=== PATIENT | female | born 1935 | race Asian ===

== ENCOUNTER 2016-07-18 08:31 | Inpatient (IN) | payer MEDICARE, OTHER ==
[2016-07-18] VITALS (60 sets, daily range): BP systolic 61–116; RESP 12–25; TEMP 99–99.4; Ht 144.8 cm; Wt 69.1 kg
[~2016-07-18] VITALS: Ht 144.8 cm; Wt 69.1 kg
[2016-07-18] MEDS ORDERED: SODIUM CHLORIDE 0.9% 1,000 ML ONE ×2 (08:53→09:16)
[2016-07-18] MEDS ORDERED: ACETAMINOPHEN 325 MG TAB ONE (09:15)
[2016-07-18] MEDS ORDERED: CEFTRIAXONE 1 GM VIAL ONE ×2 (09:16)
[2016-07-18] MEDS ORDERED: SODIUM CHLORIDE 0.9% 250 ML IV ONE (09:16)
[2016-07-18] MEDS ORDERED: SODIUM CHLORIDE 0.9% 50 ML IV ONE (09:17)
[2016-07-18] MEDS ORDERED: ONDANSETRON 4 MG VIAL ONE (09:27)
[2016-07-18] MEDS ORDERED: D5 W/KCL 20MEQ/L 1,000 ML IV SCH (11:00)
[2016-07-18] MEDS ORDERED: SODIUM CHLORIDE 0.9% 500 ML IV ONE ×3 (13:44→19:50)
[2016-07-18] MEDS: POTASSIUM CHLORIDE PREMIX 50 ML IV SCH ×3 (16:38→19:20)
[2016-07-18] MEDS: D5 W/KCL 20MEQ/L 1,000 ML IV SCH ×2 (16:52→23:54)
[2016-07-18] MEDS: ACETAMINOPHEN 325 MG TAB PO PRN ×2 (18:06→18:57)
[2016-07-18] MEDS ORDERED: NOREPINEPHRINE 16 MG in DEXTROSE 5% 234 ML IV SCH (19:50)
[2016-07-18] MEDS ORDERED: VANCOMYCIN 1,500 MG in SODIUM CHLORIDE 0.9% 250 ML IV ONE (19:50)
[2016-07-18] MEDS ORDERED: MISSING DOSE XX ONE (21:45)
[2016-07-19] VITALS (37 sets, daily range): BP systolic 81–130; RESP 13–22; TEMP 97–100.1
[2016-07-19] MEDS ORDERED: MISSING DOSE XX ONE (05:10)
[2016-07-19] MEDS: D5 W/KCL 20MEQ/L 1,000 ML IV SCH (06:42)
[2016-07-19] MEDS ORDERED: IRON SUCROSE COMPLEX 500 MG in SODIUM CHLORIDE 0.9% 250 ML IV ONE (08:15)
[2016-07-19] MEDS: VANCOMYCIN SUSP 250 MG/5 ML UDC PO SCH ×3 (09:00→20:21)
[2016-07-19] MEDS ORDERED: CALCIUM GLUCONATE 2,000 MG in SODIUM CHLORIDE 0.9% 100 ML IV ONE (14:35)
[2016-07-19] MEDS: ONDANSETRON 4 MG VIAL IV PUSH PRN (18:13)
[2016-07-20 00:01] VITALS: BP_SYST 132; RESP 20; TEMP 98.3
[2016-07-20 08:17] VITALS: BP_SYST 120; RESP 20; TEMP 98.8
[2016-07-20] MEDS: VANCOMYCIN SUSP 250 MG/5 ML UDC PO SCH ×3 (09:29→20:42)
[2016-07-20] MEDS: METRONIDAZOLE 250 MG 250 MG in SODIUM CHLORIDE 0.9% 50 ML IV SCH ×3 (09:30→17:09)
[2016-07-20 11:01] VITALS: BP_SYST 98; RESP 20; TEMP 97.3
[2016-07-20 15:27] VITALS: BP_SYST 100; RESP 20; TEMP 96.8
[2016-07-20 19:21] VITALS: BP_SYST 110; RESP 16; TEMP 96.8
[2016-07-20] MEDS: ACETAMINOPHEN 325 MG TAB PO PRN (20:42)
[2016-07-20] MEDS: SACCHA BOULARDII 250MG CAP PO SCH (21:48)
[2016-07-20] MEDS: SODIUM CHLOR 0.9% W/KCL 20MEQ 1,000 ML IV SCH (21:49)
[2016-07-20 23:22] VITALS: BP_SYST 108; RESP 16; TEMP 96.2
[2016-07-21] VITALS (7 sets, daily range): BP systolic 110–132; RESP 14–20; TEMP 96.3–98.9
[2016-07-21] MEDS: METRONIDAZOLE 250 MG 250 MG in SODIUM CHLORIDE 0.9% 50 ML IV SCH ×5 (00:19→23:29)
[2016-07-21] MEDS: VANCOMYCIN SUSP 250 MG/5 ML UDC PO SCH ×5 (00:19→23:28)
[2016-07-21] MEDS: CALCIUM CARB/VIT D3 600 MG TAB PO SCH (09:03)
[2016-07-21] MEDS: SACCHA BOULARDII 250MG CAP PO SCH ×2 (09:03→20:15)
[2016-07-21] MEDS: MULTIVITS/MINERALS (THERAGRAN M) TAB PO SCH (09:04)
[2016-07-21] MEDS: CHOLECALCIFEROL 1,000 UNITS TAB PO SCH (09:04)
[2016-07-21] MEDS: OMEGA 3 FATTY ACIDS 1 GM CAP PO SCH (09:04)
[2016-07-22] VITALS (9 sets, daily range): BP systolic 116–140; RESP 16–18; TEMP 96.9–98.3
[2016-07-22] MEDS: VANCOMYCIN SUSP 250 MG/5 ML UDC PO SCH ×4 (06:32→23:17)
[2016-07-22] MEDS: METRONIDAZOLE 250 MG 250 MG in SODIUM CHLORIDE 0.9% 50 ML IV SCH ×4 (06:32→23:18)
[2016-07-22] MEDS: MULTIVITS/MINERALS (THERAGRAN M) TAB PO SCH (08:52)
[2016-07-22] MEDS: OMEGA 3 FATTY ACIDS 1 GM CAP PO SCH (08:52)
[2016-07-22] MEDS: CALCIUM CARB/VIT D3 600 MG TAB PO SCH (08:52)
[2016-07-22] MEDS: SACCHA BOULARDII 250MG CAP PO SCH ×2 (08:52→21:22)
[2016-07-22] MEDS: CHOLECALCIFEROL 1,000 UNITS TAB PO SCH (08:53)
[2016-07-22] MEDS: SODIUM CHLOR 0.9% W/KCL 20MEQ 1,000 ML IV SCH (23:20)
[2016-07-23 03:36] VITALS: BP_SYST 124; RESP 16; TEMP 96.9
[2016-07-23] MEDS: VANCOMYCIN SUSP 250 MG/5 ML UDC PO SCH ×4 (06:17→23:08)
[2016-07-23] MEDS: METRONIDAZOLE 250 MG 250 MG in SODIUM CHLORIDE 0.9% 50 ML IV SCH ×4 (06:17→23:08)
[2016-07-23 08:05] VITALS: BP_SYST 122; RESP 18; TEMP 96.6
[2016-07-23] MEDS: CHOLECALCIFEROL 1,000 UNITS TAB PO SCH (08:20)
[2016-07-23] MEDS: OMEGA 3 FATTY ACIDS 1 GM CAP PO SCH (08:20)
[2016-07-23] MEDS: CALCIUM CARB/VIT D3 600 MG TAB PO SCH (08:20)
[2016-07-23] MEDS: MULTIVITS/MINERALS (THERAGRAN M) TAB PO SCH (08:20)
[2016-07-23] MEDS: SACCHA BOULARDII 250MG CAP PO SCH ×2 (08:20→20:19)
[2016-07-23 12:14] VITALS: BP_SYST 136; RESP 18; TEMP 97.8
[2016-07-23 15:43] VITALS: BP_SYST 126; RESP 18; TEMP 97.6
[2016-07-23] MEDS ORDERED: MISSING DOSE XX ONE (17:20)
[2016-07-23 20:07] VITALS: BP_SYST 118; RESP 18; TEMP 97.3
[2016-07-24] VITALS (7 sets, daily range): BP systolic 108–136; RESP 16; TEMP 97.5–98.4
[2016-07-24] MEDS: METRONIDAZOLE 250 MG 250 MG in SODIUM CHLORIDE 0.9% 50 ML IV SCH ×3 (05:30→17:17)
[2016-07-24] MEDS: VANCOMYCIN SUSP 250 MG/5 ML UDC PO SCH ×3 (05:32→17:17)
[2016-07-24] MEDS: CHOLECALCIFEROL 1,000 UNITS TAB PO SCH (08:58)
[2016-07-24] MEDS: CALCIUM CARB/VIT D3 600 MG TAB PO SCH (08:58)
[2016-07-24] MEDS: SACCHA BOULARDII 250MG CAP PO SCH ×2 (08:58→21:52)
[2016-07-24] MEDS: OMEGA 3 FATTY ACIDS 1 GM CAP PO SCH (08:59)
[2016-07-24] MEDS: MULTIVITS/MINERALS (THERAGRAN M) TAB PO SCH (08:59)
[2016-07-24] MEDS ORDERED: MISSING DOSE XX ONE (13:15)
[2016-07-24] MEDS: HYDROCORT 2.5% CR 30 GM RECTAL SCH (21:53)
[2016-07-25] MEDS: METRONIDAZOLE 250 MG 250 MG in SODIUM CHLORIDE 0.9% 50 ML IV SCH ×4 (01:05→17:59)
[2016-07-25] MEDS: VANCOMYCIN SUSP 250 MG/5 ML UDC PO SCH ×4 (02:03→17:59)
[2016-07-25] MEDS: SODIUM CHLOR 0.9% W/KCL 20MEQ 1,000 ML IV SCH (02:06)
[2016-07-25 04:01] VITALS: BP_SYST 148; RESP 16; TEMP 96.9
[2016-07-25] MEDS: SACCHA BOULARDII 250MG CAP PO SCH ×2 (08:23→20:07)
[2016-07-25] MEDS: CHOLECALCIFEROL 1,000 UNITS TAB PO SCH (08:23)
[2016-07-25] MEDS: HYDROCORT 2.5% CR 30 GM RECTAL SCH ×2 (08:23→20:07)
[2016-07-25] MEDS: OMEGA 3 FATTY ACIDS 1 GM CAP PO SCH (08:23)
[2016-07-25] MEDS: MULTIVITS/MINERALS (THERAGRAN M) TAB PO SCH (08:23)
[2016-07-25] MEDS: CALCIUM CARB/VIT D3 600 MG TAB PO SCH (08:23)
[2016-07-25 08:29] VITALS: BP_SYST 168; RESP 16; TEMP 98.4
[2016-07-25 11:35] VITALS: BP_SYST 150; RESP 16; TEMP 97.1
[2016-07-25 14:53] VITALS: BP_SYST 148; RESP 16; TEMP 97.2
[2016-07-25 20:02] VITALS: BP_SYST 126; RESP 16; TEMP 97.8
[2016-07-25 23:08] VITALS: BP_SYST 158; RESP 16; TEMP 98.1
[2016-07-26] MEDS: METRONIDAZOLE 250 MG 250 MG in SODIUM CHLORIDE 0.9% 50 ML IV SCH ×3 (00:16→12:21)
[2016-07-26] MEDS: VANCOMYCIN SUSP 250 MG/5 ML UDC PO SCH ×4 (00:16→17:59)
[2016-07-26 03:24] VITALS: BP_SYST 134; RESP 20; TEMP 97.9
[2016-07-26 08:13] VITALS: BP_SYST 166; RESP 20; TEMP 97.3
[2016-07-26] MEDS: MULTIVITS/MINERALS (THERAGRAN M) TAB PO SCH (08:44)
[2016-07-26] MEDS: CHOLECALCIFEROL 1,000 UNITS TAB PO SCH (08:44)
[2016-07-26] MEDS: CALCIUM CARB/VIT D3 600 MG TAB PO SCH (08:44)
[2016-07-26] MEDS: OMEGA 3 FATTY ACIDS 1 GM CAP PO SCH (08:44)
[2016-07-26] MEDS: SACCHA BOULARDII 250MG CAP PO SCH ×2 (08:44→19:43)
[2016-07-26] MEDS: HYDROCORT 2.5% CR 30 GM RECTAL SCH ×2 (08:45→19:43)
[2016-07-26 12:00] VITALS: BP_SYST 155; RESP 20; TEMP 97.3
[2016-07-26 14:30] VITALS: BP_SYST 155; RESP 20; TEMP 97.5
[2016-07-26] MEDS: METRONIDAZOLE 250 MG TAB PO SCH ×2 (17:59→19:43)
[2016-07-26 19:58] VITALS: BP_SYST 140; RESP 18; TEMP 97.1
[2016-07-26 23:22] VITALS: BP_SYST 132; RESP 16; TEMP 98.8
[2016-07-27] VITALS (7 sets, daily range): BP systolic 124–150; RESP 16–18; TEMP 97.2–98.7
[2016-07-27] MEDS: VANCOMYCIN SUSP 250 MG/5 ML UDC PO SCH ×4 (00:18→17:32)
[2016-07-27] MEDS: MULTIVITS/MINERALS (THERAGRAN M) TAB PO SCH (09:18)
[2016-07-27] MEDS: OMEGA 3 FATTY ACIDS 1 GM CAP PO SCH (09:19)
[2016-07-27] MEDS: METRONIDAZOLE 250 MG TAB PO SCH ×4 (09:19→21:31)
[2016-07-27] MEDS: SACCHA BOULARDII 250MG CAP PO SCH ×2 (09:19→21:31)
[2016-07-27] MEDS: CALCIUM CARB/VIT D3 600 MG TAB PO SCH (09:19)
[2016-07-27] MEDS: CHOLECALCIFEROL 1,000 UNITS TAB PO SCH (09:19)
[2016-07-27] MEDS: HYDROCORT 2.5% CR 30 GM RECTAL SCH ×2 (09:22→21:32)
[2016-07-28] MEDS: VANCOMYCIN SUSP 250 MG/5 ML UDC PO SCH ×4 (00:52→17:40)
[2016-07-28 02:48] VITALS: BP_SYST 126; RESP 16; TEMP 97.9
[2016-07-28 08:16] VITALS: BP_SYST 98; RESP 20; TEMP 97.5
[2016-07-28] MEDS: OMEGA 3 FATTY ACIDS 1 GM CAP PO SCH (08:49)
[2016-07-28] MEDS: CALCIUM CARB/VIT D3 600 MG TAB PO SCH (08:49)
[2016-07-28] MEDS: SACCHA BOULARDII 250MG CAP PO SCH ×2 (08:49→20:37)
[2016-07-28] MEDS: CHOLECALCIFEROL 1,000 UNITS TAB PO SCH (08:49)
[2016-07-28] MEDS: METRONIDAZOLE 250 MG TAB PO SCH ×4 (08:49→20:37)
[2016-07-28] MEDS: MULTIVITS/MINERALS (THERAGRAN M) TAB PO SCH (08:49)
[2016-07-28 11:10] VITALS: BP_SYST 102; RESP 20; TEMP 98.1
[2016-07-28] MEDS: ONDANSETRON 4 MG VIAL IV PUSH PRN (12:09)
[2016-07-28] MEDS: HYDROCORT 2.5% CR 30 GM RECTAL SCH ×2 (12:10→20:38)
[2016-07-28 15:08] VITALS: BP_SYST 140; RESP 20; TEMP 98
[2016-07-28 19:20] VITALS: BP_SYST 104; RESP 20; TEMP 100
[2016-07-28] MEDS: ACETAMINOPHEN 325 MG TAB PO PRN (20:37)
[2016-07-28 23:51] VITALS: BP_SYST 108; RESP 16; TEMP 98.3
[2016-07-29] VITALS (9 sets, daily range): BP systolic 108–120; RESP 16–18; TEMP 97.1–98.5
[2016-07-29] MEDS: VANCOMYCIN SUSP 250 MG/5 ML UDC PO SCH ×3 (00:45→14:25)
[2016-07-29] MEDS: METRONIDAZOLE 250 MG TAB PO SCH ×2 (09:59→14:25)
[2016-07-29] MEDS: CALCIUM CARB/VIT D3 600 MG TAB PO SCH (09:59)
[2016-07-29] MEDS: MULTIVITS/MINERALS (THERAGRAN M) TAB PO SCH (09:59)
[2016-07-29] MEDS: SACCHA BOULARDII 250MG CAP PO SCH (09:59)
[2016-07-29] MEDS: CHOLECALCIFEROL 1,000 UNITS TAB PO SCH (09:59)
[2016-07-29] MEDS: OMEGA 3 FATTY ACIDS 1 GM CAP PO SCH (10:00)
[2016-07-29] MEDS: HYDROCORT 2.5% CR 30 GM RECTAL SCH (14:25)
== END 2016-07-29 15:39 | DRG 371 ==
LOC: ENRESERVTM → ENRESERVDT → ER 08:31 → ENPENDDIS 10:58 → EMR 10:58 → CCU 15:54 → 4THW 07-19 17:13 → 4NT 07-27 22:49
PROVIDERS: ADMIT Internal Medicine; ATTEND Internal Medicine
DX: A04.7 Enterocolitis due to Clostridium difficile (principal); G93.41 Metabolic encephalopathy; E87.2 Acidosis; E87.1 Hypo-osmolality and hyponatremia; K92.1 Melena; E86.9 Volume depletion, unspecified; K64.9 Unspecified hemorrhoids; Z85.3 Personal history of malignant neoplasm of breast; Z90.10 Acquired absence of unspecified breast and nipple; I10 Essential (primary) hypertension; E78.5 Hyperlipidemia, unspecified; E83.51 Hypocalcemia
CPT/HCPCS: 36415; 71010; 80048; 80053; 80069; 80202; 81001; 82436; 82947; 83540; 83605; 83735; 84300; 84466; 85007; 85025; 85027; 86850; 86900; 86901; 86923; 87040; 87045; 87046; 87177; 87425; 87493; 87804; 93005; 96360; 96361; 96365